=== PATIENT | female | born 1950 | race Caucasian/White ===

== ENCOUNTER → 2018-07-15 | Day surgery (SDC) | payer MEDICARE ==
[2018-07-13 11:32] LABS: BASOPHILS % 0.5 % (0.0-1.0); EOSINOPHILS # (AUTO) 0.2 (0.0-0.4); EOSINOPHILS % 2.2 % (0.0-6.0); HEMATOCRIT 42.1 % (34.2-44.1); HEMOGLOBIN 14.3 g/dL (12.0-16.0); LYMPHOCYTES # (AUTO) 1.6 (1.0-3.2); LYMPHOCYTES % 18.6 % (18.0-39.1); MEAN CORPUSCULAR HEMOGLOBIN 30.9 pg (28-32); MEAN CORPUSCULAR VOLUME 90.9 fL (81-99); MONOCYTES # (AUTO) 0.7 (0.2-0.8); MONOCYTES % 8.2 % (4.4-11.3); NEUTROPHILS % 70.4 % (38.7-80.0); PLATELET COUNT 254 x10e3/uL (140-360); RED BLOOD COUNT 4.63 x10e6/uL (3.6-5.1)
--- NOTE | 2018-07-13 11:52 | Diagnostic Imaging Report ---
EXAMINATION: CHEST 2 VIEWS INDICATION: Pre-op. COMPARISON: None FINDINGS: TUBES and LINES: None. LUNGS: Lungs are not well inflated. There is no evidence of pneumonia or pulmonary edema. There is biapical pleural-parenchymal opacity, suggestive of prior granulomatous disease. PLEURA: No pleural effusion or pneumothorax. HEART AND MEDIASTINUM: The cardiomediastinal silhouette is unremarkable. BONES AND SOFT TISSUES: No acute osseous abnormality. UPPER ABDOMEN: No free air under the diaphragm. IMPRESSION: No acute radiographic abnormality. Signed by: Dr. Mikey Jolly MD on 07/13/2018 11:49 AM
[~2018-07-15] MED LIST: ACETAMINOPHEN 1000 MG/100 ML IV ONE; ASPIR 8181 MG PO; ATORVASTATIN CA20 MG PO; BUPIVACAINE HCL 0.5% INJ 30 ML VIAL INJ ONE; CLINDAMYCIN PHOS 900MG/ 50ML 50 ML IV ONE; DEXAMETHASONE SOD PHOS INJ 4 MG/ML VIAL ONE; ESTRADIOL1 MG PO; FENOFIBRATE145 MG PO; KETOROLAC TROMETHAMINE 30 MG/ML VIAL ONE; LIDOCAINE HCL 2% LOCAL INJ 5 ML SDV VIAL INJ ONE; MIDAZOLAM HCL 2 MG/2 ML VIAL ONE; MULTIVITAMINS1 EAC7 PO; ONDANSETRON HCL INJ 2MG/ML 2ML 2 MG/ML VIAL ONE; PROPOFOL IV EMULSION 10 MG/ML 20 ML VIAL ONE; SEVOFLURANE INHAL SOLN 250 ML PEN BTL ONE
--- OUTSIDE RECORDS SUMMARY | 2018-07-15 05:18 | XMS REPORT ---
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 Allergies, Adverse Reactions, Alerts Allergy Name Allergy Type Status Severity Reaction(s) Onset Date Inactive Date Treating Clinician Comments CODEINE DA Active U 2005-01-17 00:00:00 No Known Contrast Allergies DA Active U 2005-01-17 00:00:00 No Known Food Allergies DA Active U 2005-01-17 00:00:00 No Known Other Allergies DA Active U 2005-01-17 00:00:00 PENICILLIN DA Active U 2005-01-17 00:00:00 Medications This patient has no known medications. Results Test Description Test Time Test Comments Text Results Atomic Results Result Comments CHEST 2 VIEWS 2018-07-13 11:46:00 [place] [id number] Patient Name: THUY MEJIA MR #: [id number] : 1950 Age/Sex: 67/F Req #: [id number] Adm Physician: Ordered by: Preet ROY DPM Report #: [id number] Location: OR Room/Bed: Procedure: [id number] DX/CHEST 2 VIEWS Exam Date: 07/13/18 Exam Time: 1120 REPORT STATUS: Signed EXAMINATION: CHEST 2 VIEWS INDICATION: Pre-op. COMPARISON: None FINDINGS: TUBES and LINES: None. LUNGS: Lungs are not well inflated. There is no evidence of pneumonia or pulmonary edema. There is biapical pleural-parenchymal opacity, suggestive of prior granulomatous disease. PLEURA: No pleural effusion or pneumothorax. HEART AND MEDIASTINUM: The cardiomediastinal silhouette is unremarkable. BONES AND SOFT TISSUES: No acute osseous abnormality. UPPER ABDOMEN: No free air under the diaphragm. IMPRESSION: No acute radiographic abnormality. Signed by: Dr. Breanna Becerril MD on 07/13/2018 11:49 AM Dictated By: BREANNA BECERRIL MD [id number] Transcribed By: DONA on 07/13/18 1149 COPY TO: Preet ROY DPM
[2018-07-15 08:25] VITALS: BP 114/95
--- NOTE | 2018-07-15 12:39 | Operative Report ---
DATE OF PROCEDURE: 07/15/2018 SURGEON: Xander Miguel DPM ([place]) PREOPERATIVE DIAGNOSES: 1. Neuroma, second interspace, left. 2. Neuroma, third interspace, left. POSTOPERATIVE DIAGNOSES: 1. Neuroma, second interspace, left. 2. Neuroma, third interspace, left. OPERATIVE PROCEDURES: 1. Excision of neuroma, second interspace, left. 2. Excision of neuroma, third interspace, left. DESCRIPTION OF PROCEDURE: The patient was placed on the OR table in the supine position. The left lower extremity was prepped and draped in the usual manner. A general anesthetic was administered and hemostasis accomplished using a pneumatic cuff set at 350 mmHg at thigh level. Procedure #1: Excision of neuroma, second interspace. An incision approximately 2.5 cm long was made in the interspace between the second and third metatarsals. The incision was deepened. Blood vessels were either ligated or retracted. The hypertrophied nerve was identified, it was isolated, both distal branches were then resected with the second and third metatarsal head distracted medially and laterally, the neuroma was then removed in total. The wound was flushed with sterile saline solution. Subcutaneous tissue closed with 3-0 Vicryl and the skin with 4-0 nylon. Procedure #2: Excision of neuroma, third interspace. An incision approximately 2.5 cm long was made in the interspace between the third and fourth metatarsals. The incision was deepened. Blood vessels were either ligated or retracted. The hypertrophied nerve was identified, it was isolated, both distal branches were then resected with the third and fourth metatarsal head distracted medially and laterally, the neuroma was then removed in total. The wound was flushed with sterile saline solution. Subcutaneous tissue closed with 3-0 Vicryl and the skin with 4-0 nylon. Following the two procedures, 7 mL of 0.5 Marcaine and 1 mL of Decadron was injected to minimize postop pain. A sterile compression dressing was then applied. At this time, the pneumatic cuff was released and reflex hyperemia was observed to all digits. The patient tolerated the procedure and anesthesia well and left the OR to recovery in good condition with vital signs stable. S HELEN Osuna ([place])/MODL /[id number]
== END | disposition home or self-care (01) ==
LOC: OR 05:00
PROVIDERS: ATTEND Podiatrist Foot & Ankle Surgery
DX: G57.62 Lesion of plantar nerve, left lower limb (principal); Z88.6 Allergy status to analgesic agent; Z88.0 Allergy status to penicillin; Z01.810 Encounter for preprocedural cardiovascular examination; Z01.812 Encounter for preprocedural laboratory examination; Z01.818 Encounter for other preprocedural examination; Z79.82 Long term (current) use of aspirin
CPT/HCPCS: 28080 ×2; 36415; 71046; 85025; 93005; J0131; J1100; J1885; J2001; J2250; J2405; J2704